=== PATIENT | male | born 1965 | race Caucasian/White ===

== ENCOUNTER 2017-12-15 05:36 | Emergency (ER) | payer BC, OTHER ==
[2017-12-15 05:36] VITALS: BMI 27.3
[2017-12-15 05:46] VITALS: BP 135/81; PULSE 76; RESP 17; TEMP 98.2; O2SAT 97
--- NOTE | 2017-12-15 06:20 | ED PDOC ---
HPI: Skin/Bite Injury Time Seen by Provider: 12/15/17 05:48 Chief Complaint (Nursing): Abnormal Skin Integrity Chief Complaint (Provider): Wart History Per: Patient, [employer] Model ([id number]) History/Exam Limitations: no limitations Onset/Duration Of Symptoms: Days Current Symptoms Are (Timing): Still Present Additional Complaint(s): 52 year old male presents to the ER for an evaluation of wart on his nose onset 12/10/17. Patient reports the wart is causing pain and he has not taken any medications. Denies any other complaints. PMD: Edi Nuñez Past Medical History Reviewed: Historical Data, Nursing Documentation, Vital Signs Vital Signs: Last Vital Signs Temp 98.2 F 12/15/17 05:44 Pulse 76 12/15/17 05:44 Resp 17 12/15/17 05:44 BP 135/81 12/15/17 05:44 Pulse Ox 97 12/15/17 06:54 - Medical History PMH: No Chronic Diseases - Surgical History Surgical History: Denies: Appendectomy, Back Surgery - Family History Family History: States: Unknown Family Hx - Social History Current smoker - smoking cessation education provided: Yes (Heavy Smoker > 10 Cigarettes Daily) Alcohol: Social Drugs: Denies - Home Medications Home Medications: Ambulatory Orders Medication Instructions Recorded Acetaminophen/Oxycodone Hydr 1 tab PO Q4 PRN 02/17/14 [Percocet 325 mg-5 mg] Aspirin 81 mg PO DAILY 02/17/14 Docusate Sodium [Colace] 100 mg PO TID PRN 02/17/14 Ibuprofen [Motrin Tab] 600 mg PO Q6 #30 tab 12/15/17 - Allergies Allergies/Adverse Reactions: Allergies Allergy/AdvReac Type Severity Reaction Status Date / Time No Known Allergies Allergy Verified 12/15/17 05:46 Review of Systems ROS Statement: Except As Marked, All Systems Reviewed And Found Negative Skin: Positive for: Other (wart on nasal area) Psych: Negative for: Suicidal ideation (homicidal ideation ) Physical Exam - Reviewed Nursing Documentation Reviewed: Yes Vital Signs Reviewed: Yes - Physical Exam Appears: Positive for: Well, Non-toxic, No Acute Distress Head Exam: Positive for: ATRAUMATIC, NORMAL INSPECTION, NORMOCEPHALIC Skin: Negative for: Normal Color (wart at nasal bridge that is papular, multi- colored with slightly erythematous base) ENT: Positive for: Normal ENT Inspection Neurologic/Psych: Positive for: Alert, Oriented (x3). Negative for: Motor/ Sensory Deficits - ECG O2 Sat by Pulse Oximetry: 97 (RA) Pulse Ox Interpretation: Normal Medical Decision Making Medical Decision Making: Time: 609 A/P: 52 year old male with wart structure on nose --Motrin 600 mg --Reevaluation Patient was advised to follow up with [facility] [employer] Apprentice today for biopsy and eval to r/o carcinoma. Patient states patent paralegal lives 2 blocks away and he will follow up. Clinical Impression: wart Upon provider evaluation patient is medically stable, and requires no further treatment in the ED at this time. Patient will be discharged with Motrin tab 600mg. Counseling was provided and all questions were answered regarding diagnosis and need for follow up with patent paralegal. There is agreement to discharge plan. Return if symptoms persist or worsen. Scribe Attestation: Documented by Zafar Fu, acting as a scribe for Fady Call MD. Provider Scribe Attestation: All medical record entries made by the Scribe were at my direction and personally dictated by me. I have reviewed the chart and agree that the record accurately reflects my personal performance of the history, physical exam, medical decision making, and the department course for this patient. I have also personally directed, reviewed, and agree with the discharge instructions and disposition. Disposition - Clinical Impression Clinical Impression: Wart - Patient ED Disposition Is Patient to be Admitted: No - Disposition Referrals: Jesse Ott [Outside] Disposition: Routine/Home Disposition Time: 06:31 Condition: GOOD Additional Instructions: SIGA CON WIGGINS [facility]. Prescriptions: Ibuprofen [Motrin Tab] 600 mg PO Q6 #30 tab Instructions: Skin Warts Forms: Recombine (Spanish) Print Language: WELSH
== END 2017-12-15 06:55 | disposition home or self-care (01) ==
LOC: H.ER 05:36
DX: B07.9 Viral wart, unspecified (principal); F17.210 Nicotine dependence, cigarettes, uncomplicated; Z79.82 Long term (current) use of aspirin